=== PATIENT | male | born 1990 | race American Indian/Alaskan Native ===

== ENCOUNTER 2016-03-29 15:39 | Emergency (ER) | payer SELFPAY ==
[2016-03-29 16:06] VITALS: BP 145/100
== END 2016-03-29 16:17 | disposition left against medical advice (07) ==
LOC: ED 15:39
DX: M54.2 Cervicalgia (principal); M54.9 Dorsalgia, unspecified; M25.521 Pain in right elbow; Z53.21 Procedure and treatment not carried out due to patient leaving prior to being seen by health care provider